=== PATIENT | female | born 1965 | race Two or more races ===

== ENCOUNTER 2024-09-21 08:31 | Emergency (ER) | payer MEDICAID, OTHER ==
[~2024-09-21] VITALS: Ht 157.5 cm; Wt 102.4 kg
[2024-09-21] MEDS: SODIUM CHLORIDE 0.9% 1,000 ML IVB ONE (09:15)
--- NOTE | 2024-09-21 09:21 | ED.PDOC ---
GI ASSESSMENT HPI Comments 58-year-old female presents with a chief complaint of abdominal pain, vomiting, and headache x 0300 this morning. Patient denies any blood in the emesis, and endorses diarrhea as well. Patient denies any blood in the stool. Patient states that her pain is localized to periumbilical region, describes as cramping, and nonradiating. Patient denies any fever or chills. Patient denies any injuries or trauma prior to onset of symptoms. Denies sick contacts at home. The last thing patient ate was yogurt. Chief Complaint: Nausea/Vomiting Time Seen by MD: 08:53 Reviewed Notes: Medications, Allergies Allergies: Coded Allergies: NO KNOWN ALLERGIES (Unverified , 09/21/24) Information Source: Patient Mode of Arrival: Ambulatory Duration: Since onset Prehospital treatment: None Quality: Cramping Vomitus: Bilious Stool: Watery Severity: Mild Recent: Possible spoiled food Recent Hx of: None Pain Location: Periumbilical Past Medical History PAST MEDICAL HISTORY: Denies Surgical History: Denies all surgeries RN CLINICAL APPEALS History: No Pertinent RN CLINICAL APPEALS History Family History Family History: Reviewed,noncontributory to illness Social History Smoker: Non-Smoker Alcohol: Denies ETOH Use Drugs: Denies Drug Use Lives In: Home Constitutional: denies: chills, diaphoresis, fatigue, fever, malaise, sweats, weakness, others EENTM: denies: blurred vision, double vision, ear bleeding, ear discharge, ear drainage, ear pain, ear ringing, eye pain, eye redness, hearing loss, mouth pain, mouth swelling, nasal discharge, nose bleeding, nose congestion, nose pain, photophobia, tearing, throat pain, throat swelling, voice changes, others Respiratory: denies: cough, hemoptysis, orthopnea, SOB at rest, shortness of breath, SOB with excertion, stridor, wheezing, others Cardiovascular: denies: chest pain, dizzy spells, diaphoresis, Dyspnea on exertion, edema, irregular heart beat, left arm pain, lightheadedness, palpitations, PND, syncope, others Gastrointestinal: reports: abdominal pain, diarrhea, nausea, vomiting; denies: abdomen distended, blood streaked bowels, constipated, dysphagia, difficulty swallowing, hematemesis, melena, poor appetite, poor fluid intake, rectal bleeding, rectal pain, others Genitourinary: denies: abnormal vagina bleeding, burning, dyspareunia, dysuria, flank pain, frequency, hematuria, incontinence, pain, , vagina discharge, urgency, others Neurological: denies: dizziness, fainting, headache, left sided numbness, left sided weakness, numbness, paresthesia, pre-existing deficit, right sided numbness, right sided weakness, seizure, speech problems, tingling, tremors, weakness, others Musculoskeletal: denies: back pain, gout, joint pain, joint swelling, muscle pain, muscle stiffness, neck pain, others Integumetry: denies: bruises, change in color, change in hair/nails, dryness, laceration, lesions, lumps, rash, wounds, others Allergic/Immunocompromised: denies: Difficulty Healing, Frequent Infections, Hives, Itching, others Hematologic/Lymphatic: denies: anemia, blood clots, easy bleeding, easy bruis ing, swollen glands, others Endocrine: denies: excessive hunger, excessive sweating, excessive thirst, exc essive urination, flushing, intolerance to cold, intolerance to heat, unexplained weight gain, unexplained weight loss, others Psychiatric: denies: anxiety, bipolar disorder, depression, hopeless, panic disorder, schizophrenia, sleepless, suicidal, others All Other Systems: Reviewed and Negative Physical Exam General Appearance: No Apparent Distress, Normal HEENT: Normal ENT Inspection, Pharynx Normal, TMs Normal Neck: Full Range of Motion, Non-Tender, Normal, Normal Inspection Respiratory: Chest Non-Tender, Lungs Clear, No Accessory Muscle Use, No Respiratory Distress, Normal Breath Sounds Cardiovascular: No Edema, No JVD, No Murmur, No Gallop, Normal Peripheral Pulses, Regular Rate/Rhythm Breast Exam: Deferred Gastrointestinal: No Organomegaly, Non Tender, No Pulsatile Mass, Normal Bowel Sounds, Soft Genitalia: Deferred Pelvic: Deferred Rectal: Deferred Extremities: No calf tenderness, Normal capillary refill, Normal inspection, Normal range of motion, Non-tender, No pedal edema Musculoskeletal : Apperance: Normal Neurologic: Alert, co founder and ceo II-XII nml as Tested, No Motor Deficits, Normal Affect, Normal Mood, No Sensory Deficits Cerebellar Function: Normal Reflexes: Normal Skin: Dry, Normal Color, Warm Lymphatic: No Adenopathy EKG EKG : Pulse Rate (adult): 91 [place]: Normal Cardiac Rhythm: NSR Block: None Hypertrophy: None ST: Normal Comments No Significant ST Changes Was a procedure done? Was a procedure done?: No GI differential Dx Differential Diagnosis: Esophagitis, Gastritis/PUD, Gastroenteritis, Pancreatitis, Dehydration, Electrolyte Imbalance, Food Poisoning, Bacterial, Viral, Hypovolemia, Ischemic Bowel, Kidney Stone X-Ray, Labs, Meds, VS Vital Signs Date Time Temp Pulse Resp B/P (MAP) Pulse Ox O2 Delivery O2 Flow Rate FiO2 09/21/24 09:53 80 18 147/76 (99) 95 09/21/24 09:53 80 80 95 Room Air 09/21/24 09:21 91 09/21/24 08:50 91 09/21/24 08:42 98.2 94 22 134/68 (90) 98 Lab Test 09/21/24 09:56 Range/Units White Blood Count 10.7 4.4-10.8 10^3/uL Red Blood Count 5.41 H 4.0-5.20 10^6/uL Hemoglobin 16.7 H 12.2-16.2 g/dL Hematocrit 48.6 H 36.0-46.0 % Mean Corpuscular Volume 89.8 80.0-100.0 fL Mean Corpuscular Hemoglobin 30.8 28.0-32.0 pg Mean Corpuscular Hemoglobin Concent 34.3 32.0-36.0 g/dL Red Cell Distribution Width 13.2 11.8-14.3 % Platelet Count 207 140-450 10^3/uL Mean Platelet Volume 8.5 6.9-10.8 fL Neutrophils (%) (Auto) 86.7 H 37.0-80.0 % Lymphocytes (%) (Auto) 10.5 10.0-50.0 % Monocytes (%) (Auto) 1.9 0.0-12.0 % Eosinophils (%) (Auto) 0.7 0.0-7.0 % Basophils (%) (Auto) 0.2 0.0-2.0 % Neutrophils # (Auto) 9.2 H 1.6-8.6 10 ^3/uL Lymphocytes # (Auto) 1.1 0.4-5.4 10 ^3/uL Monocytes # (Auto) 0.2 0-1.3 10 ^3/uL Eosinophils # (Auto) 0.1 0-0.8 10 ^3/uL Basophils # (Auto) 0 0-0.2 10 ^3/uL Nucleated Red Blood Cells 0.0 % Sodium Level 138 136-145 mmol/L Potassium Level 4.1 3.5-5.1 mmol/L Chloride Level 106 98-107 mmol/L Carbon Dioxide Level 22 20-31 mmol/L Anion Gap 10 5-15 Blood Urea Nitrogen 20 9-23 mg/dL Creatinine 0.80 0.550-1.02 mg/dL Glomerular Filtration Rate Calc 85 >90 mL/min BUN/Creatinine Ratio 25.0 H 10.0-20.0 Serum Glucose 128 H 74-106 mg/dL Calcium Level 10.1 8.7-10.4 mg/dL Total Bilirubin 0.8 0.2-1.0 mg/dL Aspartate Amino Transferase (AST) 39 13-40 U/L Alanine Aminotransferase (ALT) 49 H 7-40 U/L Alkaline Phosphatase 104 46-116 U/L Total Protein 8.6 H 5.7-8.2 g/dL Albumin 5.3 H 3.2-4.8 g/dL Lipase 88 H 12-53 U/L Current Medications Medications (Trade) Dose Ordered Sig/Anita Route Start Time Stop Time Status Last Admin Ondansetron HCl (Zofran) 4 mg ONCE ONCE IV 09/21/24 09:15 09/21/24 09:16 DC 09/21/24 09:51 Sodium Chloride 1,000 ml @ 1,000 mls/hr Q1H ONCE IVB 09/21/24 09:15 09/21/24 10:14 DC 09/21/24 09:15 Al Hydrox/Mg Hydrox/Simethicone (Maalox Plus) 30 ml ONCE ONCE PO 09/21/24 09:30 09/21/24 09:31 DC 09/21/24 09:52 Belladonna Alkaloids/ Phenobarbital ( Elixir) 5 ml ONCE ONCE PO 09/21/24 09:30 09/21/24 09:31 DC 09/21/24 09:52 Lidocaine HCl (Xylocaine 2% Viscous) 15 ml ONCE ONCE PO 09/21/24 09:30 09/21/24 09:31 DC 09/21/24 09:52 58-YEAR-OLD FEMALE PRESENTS HERE WITH VOMITING DIARRHEA ABDOMINAL PAIN. BLOOD W ORK HAS BEEN DONE WITH A NORMAL CBC. CMP ALSO GENERALLY WITHIN NORMAL LIMITS EXCEPT FOR SHE DOES HAVE A MILDLY ELEVATED LIPASE OF 88. I DID CONSIDER A POSSIBLE COMMON BILE DUCT STONE. SHE DOES HAVE A HISTORY OF CHOLECYSTECTOMY. ALTHOUGH IT IS POSSIBLE THE INCREASE IN LIPASE IS FROM A POSSIBLE COMMON BILE DUCT STONE, HER SYMPTOMS THAT ARE CONSISTENT TODAY WITH GASTROENTERITIS GIVEN SHE IS HAVING VOMITING AND DIARRHEA THAT STARTED AROUND THE SAME TIME. I HAVE GIVEN HER ZOFRAN, AND A GI COCKTAIL IN THE ER AND CLINICALLY THAT HAS IMPROVED HER PAIN. I HAVE DISCHARGED HER HOME WITH ZOFRAN AND HYOSCYAMINE PRESCRIPTION. ON MY RE-EVALUATION OF THE PATIENT AT 11:30 A.M. HER ABDOMEN IS SOFT AND NONTENDER. DOUBT ACUTE SURGICAL PATHOLOGY AT THIS TIME. I HAVE GIVEN HER IV FLUIDS IN THE ER AND ZOFRAN FOR POSSIBLE DEHYDRATION. ADVISED HER THAT SHE NEEDS TO DRINK POWERADE OR GATORADE OR AN ELECTROLYTE SOLUTION GIVEN DIARRHEA. ADVISED HER TO RETURN TO THE ER IF SYMPTOMS WORSEN OR PERSIST. ALSO ADVISED HER THAT IF THE PAIN IN THE EPIGASTRIC REGION CONTINUES DESPITE MEDICATION TREATMENT, SHE MAY NEED A POSSIBLE HIDA SCAN. PATIENT AGREEABLE. Time of 1ST Reevaluation: 09:49 Reevaluation 1ST: Unchanged Time of 2ND Reevaluation: 11:56 Reevaluation 2ND: Improved Patient Education/Counseling: Diagnosis, Treatment, Prognosis Family Education/Counseling: Diagnosis, Treatment, Prognosis Departure 1 Departure Time of Disposition: 11:00 Impression: Primary Impression: Gastroenteritis Additional Impression: Dehydration Disposition: 01 HOME / SELF CARE / HOMELESS Condition: Stable e-Prescriptions Hyoscyamine Sulfate (Levsin/Sl) 0.125 Mg Sub 1-2 TAB SL Q4HPRN PRN, #30 TAB 1 Refill Prov: RANDI HATHAWAY MD 09/21/24 Ondansetron Odt 4MG Tab (ZOFRAN PO) 4 Mg Tb 4 MG PO Q6HPRN PRN for 10 Days, #20 TAB ODT TAB-DISSOLVE IN MOUTH, THEN SWALLOW Prov: RANDI HATHAWAY MD 09/21/24 Critical Care Note Critical Care Time?: No Stability Stability form required: No RANDI HATHAWAY MD Sep 21, 2024 09:21
[2024-09-21] MEDS: ONDANSETRON HCL 4 MG/2 ML VIAL IV ONE (09:51)
[2024-09-21] MEDS: MAALOX PLUS or MAALOX 30 ML PO ONE (09:52)
[2024-09-21] MEDS: DONNATAL 5ml ORAL Elix (BELLADONNA ALK-PHENOBARB) PO ONE (09:52)
[2024-09-21] MEDS: LIDOCAINE VISCOUS 2% 15ML UD PO ONE (09:52)
[2024-09-21 10:32] LABS: Basophils # (auto) 0 10 ^3/uL (0-0.2); Basophils % (auto) 0.2 % (0.0-2.0); Eosinophils # (auto) 0.1 10 ^3/uL (0-0.8); Eosinophils % (auto) 0.7 % (0.0-7.0); Hematocrit 48.6 % (36.0-46.0); Hemoglobin 16.7 g/dL (12.2-16.2); Lymphocytes # (auto) 1.1 10 ^3/uL (0.4-5.4); Lymphocytes % (auto) 10.5 % (10.0-50.0); Mean Corpuscular Hemoglobin 30.8 pg (28.0-32.0); Mean Corpuscular Hgb Conc. 34.3 g/dL (32.0-36.0); Mean Corpuscular Volume 89.8 fL (80.0-100.0); Monocytes # (auto) 0.2 10 ^3/uL (0-1.3); Monocytes % (auto) 1.9 % (0.0-12.0); Neutrophils # (auto) 9.2 10 ^3/uL (1.6-8.6); Neutrophils % (auto) 86.7 % (37.0-80.0); Platelet Count (auto) 207 10^3/uL (140-450); Red Blood Cells 5.41 10^6/uL (4.0-5.20); Red Cell Distribution Width 13.2 % (11.8-14.3); White Blood Cell 10.7 10^3/uL (4.4-10.8)
[2024-09-21 10:37] LABS: Alkaline Phosphatase 104 U/L (46-116); Anion Gap 10 (5-15); Aspartate Aminotransferase 39 U/L (13-40); Blood Urea Nitrogen 20 mg/dL (9-23); Calcium 10.1 mg/dL (8.7-10.4); Carbon Dioxide 22 mmol/L (20-31); Chloride 106 mmol/L (98-107); Potassium 4.1 mmol/L (3.5-5.1); Sodium 138 mmol/L (136-145)
[2024-09-21 10:38] LABS: Alanine Aminotransferase 49 U/L (7-40); Albumin 5.3 g/dL (3.2-4.8); Bilirubin, Total 0.8 mg/dL (0.2-1.0); Glucose 128 mg/dL (74-106); Total Protein 8.6 g/dL (5.7-8.2)
[2024-09-21 10:55] LABS: Lipase 88 U/L (12-53)
[2024-09-21] MEDS ORDERED: HYOS0.1251 SL (12:00)
[2024-09-21] MEDS ORDERED: ZOFR4T PO (12:00)
[2024-09-21 12:33] VITALS: BP 148/78; PULSE 76; RESP 18; TEMP 98.8; O2SAT 96
--- NOTE | 2024-09-24 11:46 | ECG ---
[facility] Test Date: 2024-09-21 Test Time: 08:50:08 Pat Name: MOHINDER CROW Department: ER Room: Gender: F Data Management Engineer: RONAL : 1965 Requested By: RANDI HATHAWAY Order Number: [id number] Reading MD: Juan Ambrose Measurements Intervals [place] Rate: 91 P: 58 OK: 141 QRS: 1 QRSD: 88 T: 37 QT: 377 QTc: 464 Interpretive Statements Sinus rhythm Electronically Signed On 09-25-2024 19:19:14 PST by Juan Ambrose Please click the below link to view image of tracing.
== END 2024-09-21 12:34 | disposition home or self-care (01) ==
LOC: ER 08:31
DX: K52.9 Noninfective gastroenteritis and colitis, unspecified (principal); E86.0 Dehydration
CPT/HCPCS: 36415; 80053; 83690; 85025; 93005; 96361; 96374; 99284; J2405; J7030